=== PATIENT | female | born 1990 | race Caucasian/White ===

== ENCOUNTER → 2023-07-30 | Outpatient (CLI) | payer OTHER ==
[2023-07-30 12:10] LABS: ALBUMIN 3.8 G/DL (3.2-5.2); ALKALINE PHOSPHATASE 75 U/L (46-116); ALT/SGPT 12 U/L (7.0-40); AST/SGOT 15 U/L (<34); BILIRUBIN,TOTAL 0.5 MG/DL (0.3-1.2); BLOOD UREA NITROGEN 8 MG/DL (9-23); CALCIUM LEVEL 8.8 MG/DL (8.5-10.1); CARBON DIOXIDE LEVEL 26 MMOL/L (20-31); CHLORIDE LEVEL 108 MMOL/L (98-107); CREATININE FOR GFR 0.57 MG/DL (0.55-1.30); GLOMERULAR FILTRATION RATE > 60.0 (>60); GLUCOSE, FASTING 100 MG/DL (60-100); POTASSIUM SERUM 4.2 MMOL/L (3.5-5.1); SODIUM LEVEL 138 MMOL/L (136-145)
[2023-07-30 12:16] LABS: HCG, SERUM QUALITATIVE NEGATIVE (NEGATIVE)
[2023-07-30 12:37] LABS: HIV 1&2 SCREEN NEGATIVE (NEGATIVE)
[2023-07-30 12:48] LABS: HEPATITIS C VIRUS ABY INDEX > 11.00 INDEX (<0.8)
[2023-07-30 13:24] LABS: GC DNA AMPLIFICATION NEGATIVE (NEGATIVE)
== END ==
LOC: M LAB 10:26
PROVIDERS: ATTEND Family Medicine
DX: F11.20 Opioid dependence, uncomplicated (principal)

== ENCOUNTER 2024-02-21 16:03 | Emergency (ER) | payer OTHER ==
[~2024-02-21] VITALS: Ht 170.2 cm; Wt 74.7 kg
[2024-02-21] MEDS ORDERED: SERT50TA29 PO (16:52)
[2024-02-21] MEDS ORDERED: D-AMPHETAMINE PO (16:52)
[2024-02-21] MEDS ORDERED: CLON-412 PO (16:52)
[2024-02-21 16:59] LABS: BASO % 0.2 % (0.0-1.0); EOS # 0.1 10^3/uL (0.0-0.5); EOS % 0.6 % (0.0-3.0); HEMATOCRIT 39.5 % (36.0-47.0); HEMOGLOBIN 12.9 g/dl (12.0-15.5); LYMPH % 20.5 % (24.0-44.0); MEAN CORPUSCULAR HEMOGLOBIN 29.9 pg (27.0-33.0); MEAN CORPUSCULAR HGB CONC 32.7 g/dl (32.0-36.5); MEAN CORPUSCULAR VOLUME 91.4 fl (80.0-96.0); MONO # 0.7 10^3/uL (0.0-0.8); MONO % 6.9 % (2.0-8.0); NEUTROPHILS % 71.5 % (36.0-66.0); PLATELET COUNT, AUTOMATED 278 10^3/uL (150-450); RED BLOOD COUNT 4.32 10^6/uL (4.00-5.40); WHITE BLOOD COUNT 9.9 10^3/uL (4.0-10.0)
[2024-02-21 17:03] LABS: ERYTHROCYTE SEDIMENTATION RATE 51 mm/hr (0-20)
[2024-02-21 17:25] LABS: BLOOD UREA NITROGEN 6 MG/DL (9-23); CALCIUM LEVEL 9.2 MG/DL (8.5-10.1); CARBON DIOXIDE LEVEL 29 MMOL/L (20-31); CHLORIDE LEVEL 102 MMOL/L (98-107); CREATININE FOR GFR 0.58 MG/DL (0.55-1.30); GLOMERULAR FILTRATION RATE > 60.0 (>60); GLUCOSE, FASTING 121 MG/DL (60-100); POTASSIUM SERUM 3.7 MMOL/L (3.5-5.1); SODIUM LEVEL 136 MMOL/L (136-145)
[2024-02-21] MEDS ORDERED: ISOVUE-370 76% 100ML VIAL As Ordered ONE (18:07)
[2024-02-21] MEDS: dexAMETHasone 20MG/5ML VIAL IV ONE (19:50)
[2024-02-21] MEDS: KETOROLAC 30 MG/ML 1ML VIAL IV ONE (19:50)
[2024-02-21] MEDS: CLINDAMYCIN 300 MG in IV 1 EA IV ONE (20:13)
[2024-02-21 21:18] VITALS: BP 126/60; TEMP 96.8; O2SAT 96
[2024-02-21] MEDS ORDERED: CLIN150C17 PO (21:33)
[2024-02-21] MEDS ORDERED: MELO7.5T35 PO (21:35)
== END 2024-02-21 21:40 | disposition home or self-care (01) ==
LOC: M ED 16:03
DX: K04.7 Periapical abscess without sinus (principal); K02.9 Dental caries, unspecified; F41.9 Anxiety disorder, unspecified; F32.A Depression, unspecified; F19.10 Other psychoactive substance abuse, uncomplicated; F17.200 Nicotine dependence, unspecified, uncomplicated; Z88.0 Allergy status to penicillin
CPT/HCPCS: 36415; 70491; 80048; 83605; 85025; 85652; 86140; 96365; 96375; 99284; J0737; J1100; J1885; Q9967